=== PATIENT | female | born 1950 | race Caucasian/White ===

== ENCOUNTER 2018-04-05 07:47 | Emergency (ER) | payer MEDICARE, OTHER ==
[2018-04-05] MEDS: FAMOTIDINE 20 MG INJ IV (08:33)
[2018-04-05] MEDS: ONDANSETRON 4 MG INJ IV ×3 (08:33→13:39)
[2018-04-05] MEDS: SOD CHLORIDE 0.9% 1,000 ML IV ×2 (09:06→13:40)
[2018-04-05 09:11] LABS: ADD MAN DIFF? NO
[2018-04-05 09:13] LABS: BASOPHILS % 0.2 % (0.0-2.0); HEMATOCRIT 37.9 % (37.0-47.0); HEMOGLOBIN 12.2 g/dl (12.0-16.0); LYMPHOCYTES # 1.3 10^3/ul (0.8-2.9); LYMPHOCYTES % 10.5 % (15.0-51.0); MEAN CORPUSCULAR HEMOGLOBIN 30.3 pg (29.0-33.0); MEAN CORPUSCULAR HGB CONC 32.2 g/dl (32.0-37.0); MEAN PLATELET VOLUME 11.7 fl (7.4-10.4); MONOCYTE # 0.4 10^3/ul (0.3-0.9); MONOCYTES % 2.9 % (0.0-11.0); NEUTROPHIL # 10.6 10^3/ul (1.6-7.5); PLATELET COUNT 174 10^3/UL (140-415); RED BLOOD COUNT 4.03 10^6/ul (4.20-5.40)
[2018-04-05 09:13] LABS: WHITE BLOOD COUNT 12.3 10^3/ul (4.8-10.8)
[2018-04-05 09:31] LABS: ALANINE AMINOTRANSFERASE 25 IU/L (13-69); ALBUMIN 4.4 g/dl (3.3-4.9); ALBUMIN/GLOBULIN RATIO 1.46; ALKALINE PHOSPHATASE 65 IU/L (42-121); AMYLASE 53 U/L (11-123); ANION GAP 12 (8-16); ASPARTATE AMINO TRANSFERASE 22 IU/L (15-46); BILIRUBIN,INDIRECT 0.5 mg/dl (0-1.1); BILIRUBIN,TOTAL 0.5 mg/dl (0.2-1.3); BLOOD UREA NITROGEN 22 mg/dl (7-20); CALCIUM 9.2 mg/dl (8.4-10.2); CARBON DIOXIDE 27 mmol/L (21-31); CHLORIDE 105 mmol/L (97-110); CREATININE 0.47 mg/dl (0.44-1.00); GLUCOSE 186 mg/dl (70-220); LIPASE 28 U/L (23-300); POTASSIUM 4.1 mmol/L (3.5-5.1); SODIUM 140 mmol/L (135-144); TOTAL PROTEIN 7.4 g/dl (6.1-8.1)
[2018-04-05 09:34] LABS: INR 0.98; PROTIME 13.1 Sec (11.9-14.9)
[2018-04-05 09:35] LABS: PARTIAL THROMBOPLASTIN TIME 23.2 Sec (25.0-35.0)
[2018-04-05 10:03] LABS: TROPONIN-I < 0.010 ng/ml (0.000-0.120)
[2018-04-05] MEDS: DIPHENHYDRAMINE 50 MG INJ IV (13:14)
[2018-04-05] MEDS: METOCLOPRAMIDE 10 MG INJ IV (13:39)
[2018-04-05 13:58] LABS: ADD UMIC YES; UR ASCORBIC ACID 40 mg/dL (NEGATIVE); UR BACTERIA FEW /HPF (NONE SEEN); UR BILIRUBIN (Dip) NEGATIVE (NEGATIVE); UR BLOOD (Dip) NEGATIVE (NEGATIVE); UR CLARITY SLIGHTLY CLOUDY (CLEAR); UR COLOR YELLOW (YELLOW); UR GLUCOSE (Dip) NEGATIVE (NEGATIVE); UR KETONES (Dip) NEGATIVE (NEGATIVE); UR LEUKOCYTE ESTERASE (Dip) 3+ Leu/ul (NEGATIVE); UR MUCUS MODERATE /HPF (NONE SEEN); UR NITRITE (Dip) NEGATIVE (NEGATIVE); UR RBC 40 /HPF (0-5); UR SPECIFIC GRAVITY (Dip) 1.026 (1.003-1.030); UR TOTAL PROTEIN (Dip) NEGATIVE (NEGATIVE); UR UROBILINOGEN (Dip) NEGATIVE (NEGATIVE); UR WBC 40 /HPF (0-5)
== END 2018-04-05 18:40 | disposition home or self-care (01) ==
LOC: E/R 07:47
DX: R11.10 Vomiting, unspecified (principal); F17.210 Nicotine dependence, cigarettes, uncomplicated; R41.82 Altered mental status, unspecified; R07.9 Chest pain, unspecified
CPT/HCPCS: 36415; 70450; 80053; 81001; 82150; 83690; 84484; 85025; 85610; 85730; 87040; 87086; 93005; 96361; 96374; 96375; 96376; 99285-25